=== PATIENT | female | born 2000 | race African-American/Black ===

== ENCOUNTER 2023-11-19 13:12 | Emergency (ER) | payer MEDICAID ==
[~2023-11-19] VITALS: Ht 160 cm; Wt 99.8 kg
[2023-11-19 13:17] VITALS: O2SAT 100
[2023-11-19 14:05] LABS: BASOPHILS % 0.9 % (0.0-2.0); EOSINOPHILS % 3.7 % (0.0-5.0); HEMATOCRIT. 41.4 % (36.0-48.0); HEMOGLOBIN. 13.7 g/dL (12.0-16.0); MEAN CORPUSCULAR HEMOGLOBIN 29.6 pg (28.0-32.0); MEAN CORPUSCULAR VOLUME 89.9 fL (81.0-99.0); MEAN PLATELET VOLUME 7.7 fl (7.4-10.4); NEUTROPHILS % 62.4 % (40.0-76.0); PLATELET 361 x1000/uL (130-400); RED BLOOD CELL COUNT 4.61 mill/uL (4.2-5.4); RED CELL DISTRIBUTION WIDTH 13.4 % (11.6-14.6); WHITE BLOOD COUNT 10.3 x1000/uL (4.5-11.0)
[2023-11-19 14:28] LABS: CHLORIDE 109 mEq/L (98-107); POTASSIUM 4.3 mEq/L (3.5-5.1); SODIUM 139 mEq/L (136-145)
[2023-11-19 14:29] LABS: CALCIUM 9.3 mg/dL (8.7-10.4); CARBON DIOXIDE 28 mEq/L (21-32)
[2023-11-19 14:34] LABS: CREATININE 0.9 mg/dL (0.6-1.0); GLUCOSE 88 mg/dL (70-105); UREA NITROGEN BLOOD 5 mg/dL (9-23)
[2023-11-19 14:43] LABS: B-HCG QUANTITATIVE < 1 mIU/mL (<3)
[2023-11-19 16:59] VITALS: BP 121/66; PULSE 70; RESP 16; TEMP 98.3
== END 2023-11-19 16:51 | disposition home or self-care (01) ==
LOC: ER 13:12
DX: N93.9 Abnormal uterine and vaginal bleeding, unspecified (principal)
CPT/HCPCS: 36415; 76830; 76856; 80048; 81025; 84702; 85025; 86850; 86900; 99284

== ENCOUNTER 2024-05-20 14:26 | Emergency (ER) | payer MEDICAID ==
[~2024-05-20] VITALS: Ht 160 cm; Wt 87.0 kg
[2024-05-20 14:32] VITALS: O2SAT 97
[2024-05-20] MEDS: ONDANSETRON 4MG ODT PO ONE (15:22)
[2024-05-20] MEDS: MORPHINE SULFATE 4 MG/ML INJ (FOR IV/IM USE) IM ONE (15:23)
[2024-05-20] MEDS ORDERED: ACET-2708 MT (16:23)
[2024-05-20] MEDS ORDERED: HYDR-4001 MT (16:23)
[2024-05-20 17:47] VITALS: BP 138/88; PULSE 87; RESP 16; TEMP 36.7; O2SAT 97
== END 2024-05-20 17:45 | disposition home or self-care (01) ==
LOC: ER 14:34
DX: S52.502A Unspecified fracture of the lower end of left radius, initial encounter for closed fracture (principal); V89.2XXA Person injured in unspecified motor-vehicle accident, traffic, initial encounter; Y93.89 Activity, other specified; Y92.89 Other specified places as the place of occurrence of the external cause; Y99.8 Other external cause status
CPT/HCPCS: 99284; 73080; 73110; 29125; 96372; Q0162; J2270